=== PATIENT | male | born 1935 | race African-American/Black ===

== ENCOUNTER 2017-11-01 13:51 | Outpatient (CLI) ==
[2015-07-31 02:54] VITALS: BMI 20.6
--- NOTE | 2017-11-01 14:48 | CT ---
EXAM: CT of the head without contrast History: Amnesia. Technique: Multiplanar CT images through the head were obtained without the administration of IV con trast Findings: The visualized paranasal sinuses and mastoid air cells are clear in general. No acute cristal varial abnormalities. Intracranially there is mild diffuse atrophy. No dominant mass or midline shift. No hydrocephalous. No acute intracranial hemorrhage or abnormal extraaxial fluid collections. Periventricular and sub cortical white matter hypodensities. Age indeterminate bilateral basal ganglial lacunar infarctions but most likely old. Impression: 1. No acute intracranial hemorrhage. 2. 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
== END 2017-11-01 13:52 | disposition home or self-care (01) ==
LOC: RAD 13:51
PROVIDERS: ATTEND Physician Assistant
DX: R41.3 Other amnesia (principal)

== ENCOUNTER 2018-02-14 14:47 | Outpatient (CLI) ==
[2015-07-31 02:54] VITALS: BMI 20.6
== END 2018-02-14 15:04 | disposition short-term general hospital (02) ==
LOC: AMBL 14:47
PROVIDERS: ATTEND Internal Medicine
DX: R11.10 Vomiting, unspecified (principal); I10 Essential (primary) hypertension

== ENCOUNTER 2018-02-28 11:18 | Outpatient (POV) ==
[2015-07-31 02:54] VITALS: BMI 20.6
== END 2018-02-28 17:00 ==
LOC: OUTPT 11:18
PROVIDERS: ATTEND Otolaryngology
DX: H91.90 Unspecified hearing loss, unspecified ear (principal)
CPT/HCPCS: 92557; 92567